=== PATIENT | male | born 1995 | race Caucasian/White ===

== ENCOUNTER 2018-02-26 12:13 | Emergency (ER) | payer BC ==
[2018-02-26 12:37] VITALS: BP 143/88; PULSE 95; RESP 16; TEMP 98.3
--- NOTE | 2018-02-26 12:53 | ED ---
General Adult HPI - General Chief complaint: Extremity Injury, Upper Stated complaint: Fall, R shoulder Pain Time Seen by Provider: 02/26/18 12:41 Source: patient Mode of arrival: ambulatory Limitations: no limitations - History of Present Illness Initial comments: Kevin is a previously healthy 23-year-old male who comes to the ED today for evaluation of right-sided shoulder pain. Patient reports that he was drinking alcohol yesterday, he had a mechanical trip and fall in which he fell to his right shoulder and then rolled. He did not hit his head, he did not lose consciousness. Patient reports that he immediately had some mild pain in his right shoulder but attempted to sleep it off. This morning he had worsened pain in his right shoulder, he states that him and his friends watch some videos about shoulder dislocation and attempted to pull on his shoulder. They state that they never felt the shoulder is really out of place but he had pain with any movement. He and no resolution of the pain after his friends pulled on his shoulder so they decided to come to the ER for evaluation. The patient has no history of injury or surgery to that shoulder in the past. He has no history of dislocation of joints in the past. He has no known connective tissue disorders. 600 mg of by mouth Motrin this morning with no improvement in his pain. Patient denies any other complaints today. - Related Data Previous Rx's Medication Instructions Recorded Ibuprofen [Motrin] 800 mg PO TID #30 tab 02/26/18 Allergies Allergy/AdvReac Type Severity Reaction Status Date / Time No Known Allergies Allergy Verified 02/26/18 12:37 Review of Systems ROS Statement: Those systems with pertinent positive or pertinent negative responses have been documented in the HPI. ROS Other: All systems not noted in ROS Statement are negative. Past Medical History Past Medical History: No Reported History History of Any Multi-Drug Resistant Organisms: None Reported Past Surgical History: Appendectomy, Tonsillectomy Past Psychological History: No Psychological Hx Reported Smoking Status: Never smoker Past Alcohol Use History: Occasional Past Drug Use History: None Reported General Exam Limitations: no limitations General appearance: alert, in no apparent distress Head exam: Present: atraumatic, normocephalic Eye exam: Present: normal appearance, PERRL ENT exam: Present: normal exam Neck exam: Present: normal inspection. Absent: tenderness Respiratory exam: Present: normal lung sounds bilaterally. Absent: respiratory distress Cardiovascular Exam: Present: regular rate, normal rhythm GI/Abdominal exam: Present: soft. Absent: distended Rectal exam: Present: deferred Extremities exam: Present: tenderness. Absent: full ROM Right Shoulder Exam: Present: tenderness. Absent: full ROM, swelling, abrasion, laceration, ecchymosis, deformity Upper Arm exam: Absent: tenderness, swelling, abrasion, laceration, ecchymosis Elbow exam: Present: full ROM. Absent: tenderness, swelling, abrasion Forearm Wrist exam: Present: full ROM. Absent: tenderness, swelling, abrasion Hand Wrist exam: Present: full ROM. Absent: tenderness, swelling, abrasion Course Vital Signs 02/26/18 12:35 Temperature 98.3 F Pulse Rate 95 Respiratory 16 Rate Blood Pressure 143/88 O2 Sat by Pulse 100 Oximetry Medical Decision Making - Medical Decision Making The patient was seen and evaluated, history was obtained from the patient and his friends at bedside She had a mechanical trip and fall yesterday landing on his right shoulder, experienced pain and was concerned that he had some dislocation, reports that his friends washed the YouTube video and attempted to reduce his shoulder. At this time they feel his shoulder looks like it's in the right spot but he continues to have pain especially with range of motion Physical exam with no obvious deformity, no ecchymosis or abrasions to the shoulder, normal clavicle. Range of motion is limited by pain. Normal strength and sensation in the hand and elbow. X-ray of the right shoulder reveals no acute injury. No evidence of acute dislocation, no evidence of before meals separation. I discussed with the patient that x-ray I did advise no acute bony injury or subluxation however cannot rule out possibility that he had dislocated his shoulder or possibility of soft tissue injury including a rotator cuff injury. I gave the patient a sling for comfort and advised him to take Motrin 800 mg 3 times a day for anti- inflammatory. Advised the patient to follow up with PCP or orthopedic surgery for reevaluation if pain persists greater than 48 hours. Disposition Clinical Impression: Strain of shoulder Disposition: HOME SELF-CARE Condition: Good Instructions: Rotator Cuff Injury (ED) Prescriptions: Ibuprofen [Motrin] 800 mg PO TID #30 tab Is patient prescribed a controlled substance at d/c from ED?: No Referrals: Oli Esquivel MD [Primary Care Provider] - 1-2 days
--- NOTE | 2018-02-26 13:11 | XR ---
EXAMINATION TYPE: XR shoulder complete RT , 3 VIEWS DATE OF EXAM ORDERED: 02/26/2018 HISTORY: Pain. COMPARISON: None. FINDINGS: No fracture, dislocation or other acute osseous lesion is seen. IMPRESSION: NORMAL RIGHT SHOULDER.
== END 2018-02-26 13:30 | disposition home or self-care (01) ==
LOC: EC 12:13
DX: S46.911A Strain of unspecified muscle, fascia and tendon at shoulder and upper arm level, right arm, initial encounter (principal); W01.0XXA Fall on same level from slipping, tripping and stumbling without subsequent striking against object, initial encounter
CPT/HCPCS: 99283

== ENCOUNTER → 2018-05-27 | Outpatient (CLI) | payer BC ==
--- NOTE | 2018-05-27 09:54 | MR ---
EXAMINATION TYPE: MR shoulder RT wo con DATE OF EXAM: 05/27/2018 9:27 AM COMPARISON: NONE HISTORY: Rotator cuff tear, right shoulder TECHNIQUE: Multiplanar, multisequence imaging of the right shoulder is performed without contrast. FINDINGS: There is no evidence of an os acromiale. There are moderate hypertrophic and inflammatory c hanges in the right AC joint. The acromion is neutral. There is a small amount of fluid in the subacromial bursa as well as the subdeltoid bursa. There is m ild tendinosis involving the distal fibers of the supraspinatus tendon. No definite rotator cuff tear is seen. There is no muscular retraction. The cartilaginous glenoid labrum is intact. The biceps muscle tendon is normally situated within the biceps tendon groove and inserts normally up on the biceps anchor. IMPRESSION: MILD TENDINOSIS OF THE DISTAL FIBERS OF THE SUPRASPINATUS TENDON WITHOUT A DEFINITE ROTATOR CUFF TEAR .
== END ==
LOC: RADMRIMAIN 07:38
PROVIDERS: ATTEND Family Medicine
DX: M65.811 Other synovitis and tenosynovitis, right shoulder (principal)

== ENCOUNTER 2021-03-08 14:53 | Emergency (ER) | payer BC, OTHER ==
[2021-03-08 15:11] VITALS: BP 150/101; PULSE 76; RESP 16; TEMP 98.7
[2021-03-08] MEDS ORDERED: HYDROmorphone 1 MG/ML 1 ML SYRINGE IM STA (15:27)
--- NOTE | 2021-03-08 16:04 | XR ---
EXAMINATION TYPE: XR ankle complete RT DATE OF EXAM: 03/08/2021 COMPARISON: NONE HISTORY: Pain TECHNIQUE: 3 views FINDINGS: Ankle mortise is anatomic. I see no fracture nor dislocation. There is mild lateral soft ti ssue swelling. There is small Achilles calcaneal spur. IMPRESSION: Mild soft tissue swelling. No fracture.
--- NOTE | 2021-03-08 16:05 | XR ---
EXAMINATION TYPE: XR foot complete RT DATE OF EXAM: 03/08/2021 COMPARISON: NONE HISTORY: Pain TECHNIQUE: 3 views FINDINGS: I see no fracture nor dislocation. Joint spaces are normal. Metatarsals are intact. The toe s appear intact. IMPRESSION: Negative right foot exam.
--- NOTE | 2021-03-08 16:18 | ED ---
Lower Extremity Injury HPI - General Chief Complaint: Extremity Injury, Lower Stated Complaint: R foot injury Time Seen by Provider: 03/08/21 15:12 Source: patient, RN notes reviewed Mode of arrival: ambulatory Limitations: no limitations - History of Present Illness Initial Comments: Patient is a 26-year-old male that presents to the emergency department complaining of right ankle pain. He notes that several days ago he dropped a trailer hitch on his right foot. He thought nothing of it but today woke up with some swelling and some significant pain. He notes that his pain is approximately an 8 out of 10 with no relief from at home nor goes. Patient notes that he does have full sensation and range of motion secondary to pain and swelling. He denied any other issues or complaints. He is otherwise well- appearing well-hydrated 18-year-old male. He denied any chest pain short of breath headache nausea vomiting diarrhea constipation fever fatigue chills. - Related Data Previous Rx's Medication Instructions Recorded Ibuprofen [Motrin] 800 mg PO TID #30 tab 02/26/18 Allergies Allergy/AdvReac Type Severity Reaction Status Date / Time No Known Allergies Allergy Verified 02/26/18 12:37 Review of Systems ROS Statement: Those systems with pertinent positive or pertinent negative responses have been documented in the HPI. ROS Other: All systems not noted in ROS Statement are negative. Past Medical History Past Medical History: No Reported History History of Any Multi-Drug Resistant Organisms: None Reported Past Surgical History: Appendectomy, Tonsillectomy Past Psychological History: No Psychological Hx Reported Smoking Status: Never smoker Past Alcohol Use History: Occasional Past Drug Use History: None Reported General Exam Limitations: no limitations General appearance: alert, in no apparent distress Head exam: Present: atraumatic, normocephalic, normal inspection Eye exam: Present: normal appearance, PERRL, EOMI. Absent: scleral icterus, conjunctival injection, periorbital swelling Neck exam: Present: normal inspection Respiratory exam: Present: normal lung sounds bilaterally. Absent: respiratory distress, wheezes, rales Cardiovascular Exam: Present: regular rate, normal rhythm, normal heart sounds. Absent: systolic murmur, diastolic murmur, rubs, gallop, clicks GI/Abdominal exam: Present: soft, normal bowel sounds. Absent: distended, tenderness, guarding, rebound, rigid Right Ankle exam: Present: tenderness (Over the lateral aspect.), swelling. Absent: normal inspection, full ROM (Secondary to pain), abrasion, laceration, ecchymosis Neurological exam: Present: alert, oriented X3 Psychiatric exam: Present: normal affect, normal mood Skin exam: Present: warm, dry, intact, normal color. Absent: rash Course Vital Signs 03/08/21 15:05 Temperature 98.7 F Pulse Rate 76 Respiratory 16 Rate Blood Pressure 150/101 O2 Sat by Pulse 98 Oximetry Medical Decision Making - Medical Decision Making 26-year-old male planning of right ankle pain after dropping a trailer hitch on it. X-ray of the right ankle and foot, 1 mg of Dilaudid ordered. X-ray negative for any acute fractures or dislocations. Minimal soft tissue swelling. Patient most likely has a right ankle sprain. Case discussed with Dr. Howell, patient can discharge home with follow-up to orthopedist as needed. - Radiology Data Radiology results: report reviewed, image reviewed X-ray right foot: Negative right foot exam. Right ankle x-ray: Mild soft tissue swelling. No fracture. Disposition Clinical Impression: Right ankle sprain Disposition: HOME SELF-CARE Condition: Stable Instructions (If sedation given, give patient instructions): Foot Sprain (ED) Additional Instructions: Please return to the Emergency Department if symptoms worsen or any other concerns. Follow-up with primary care orthopedist as needed. Use as tolerated. Take Tylenol and Motrin as needed for pain. Is patient prescribed a controlled substance at d/c from ED?: No Referrals: Oli Esquivel MD [Primary Care Provider] - 1-2 days Brandon Mondragon MD [STAFF PHYSICIAN] - 1-2 days Time of Disposition: 16:18
== END 2021-03-08 16:29 | disposition home or self-care (01) ==
LOC: EC 14:53
DX: S93.401A Sprain of unspecified ligament of right ankle, initial encounter (principal); Z90.89 Acquired absence of other organs; Z90.09 Acquired absence of other part of head and neck; X58.XXXA Exposure to other specified factors, initial encounter
CPT/HCPCS: 73610; 73630; 99283; 96372; J1170; 96374

== ENCOUNTER → 2024-11-08 | Outpatient (CLI) | payer OTHER | END | disposition home or self-care (01) | LOC: LABWHC1 15:59 | PROVIDERS: ATTEND Internal Medicine Cardiovascular Disease | DX: I10 Essential (primary) hypertension (principal) | CPT/HCPCS: 36415; 82088; 82533; 83835; 84244 ==